=== PATIENT | male | born 1960 | race Caucasian/White ===

== ENCOUNTER 2024-06-21 08:03 | Emergency (ER) | payer BC, SELFPAY ==
[2024-06-21 08:10] VITALS: BP 125/89
[2024-06-21 08:14] VITALS: BMI 26.3
[2024-06-21] MEDS: TORADOL 15 MG IM (08:25)
--- NOTE | 2024-06-21 08:25 | ED.GENMED ---
History of Present Illness
General
Chief Complaint: Fall
Source: patient
Exam Limitations: none
Time Seen by Provider: 06/21/24 08:09
Nursing documentation reviewed up to this point in time: agreed with
History of Present Illness
History of Present Illness:
64-year-old male with past medical history of hypertension presenting the emergency department today with concerns of a trip and fall down 3 steps earlier this morning. Mainly landed on his left side his left thigh and left upper arm. Did not hit
his head did not lose consciousness not on blood thinners.
Past History
Past History
ED Past Medical History: Other (N/A)
ED Past Surgical History: Other (N/A)
Social History
Personal:
Living: with family
Review of Systems
Review of Systems
Allergies reviewed?: Yes
All Other Systems: ROS reviewed and negative except as documented in HPI and ROS
Phy Exam
Physical Exam
Physical Exam:
GENERAL: Alert , in no apparent distress
EYE: pupils equal and reactive
NECK: Supple, no significant adenopathy.
ENT: o/p clr, mmm.
CARDIAC: Regular rate and rhythm .
LUNGS: Clear breath sounds bilaterally, no acute respiratory distress, no wheezes/rales/rhonchi
ABDOMEN: Soft, without focal tenderness, no r/g, no cvat
NEUROLOGICAL: Alert and oriented, no focal neuro deficits
SKIN: Warm and dry, skin intact.
MUSCULOSKELETAL: Mild tenderness palpation to the mid left humerus as well as the missed mid left thigh region otherwise good range of motion no edema, well perfused.
PSYCH: Normal and appropriate interaction.
Course
Orders/Labs/Results
Orders:
Orders
06/21/24 08:18
Ketorolac [Toradol] 15 mg IM NOW STA
CR Femur - Left Min 2 Vw Urgent
Comment:
Reason For Exam: left femur pain after fall
CR Humerus - Left Min 2 Views* Urgent
Comment:
Reason For Exam: fall hit arm
06/21/24 09:14
Sling Left-Treatment ONCE
06/21/24 09:[address] Pelvis W/o Iv Contrast Urgent
Comment:
Reason For Exam: left hip pain normal femur film
06/21/24 11:35
Pt Eval And Treat Urgent
Treatment: left leg toe toch (acetabular fx), left ahumerus fx in sling
Activity Level: Ambulate
06/21/24 12:23
Case Management Consult ONCE
Case Management Consult: Discharge Planning
Comment: Needs WC, home PT
Oxycodone/Acetaminophen [Percocet 5/325] 1 tablet PO NOW STA
Vital Signs
Initial and Last Documented VS:
Initial Vital Signs
Temp Pulse Resp BP Pulse Ox
98.5 F 90 18 125/89 95
06/21/24 08:10 06/21/24 08:10 06/21/24 08:10 06/21/24 08:10 06/21/24 08:10
Last Documented Vital Signs
Temp Pulse Resp BP Pulse Ox
98.5 F 90 18 125/89 95
06/21/24 08:10 06/21/24 08:10 06/21/24 08:10 06/21/24 08:10 06/21/24 08:10
MDM/Problems Addressed
MDM/Problems Addressed:
64-year-old male presenting to the emergency department today after falling down 3 steps prior to arrival. Mainly landed on his left upper arm and left thigh. Did not hit his head remembers the entire event no loss of consciousness not on blood
thinners. No evidence of to the head or neck normal neurologic evaluation. Normal vital signs on arrival. X-ray showing proximal humerus fracture. Patient was placed in a sling and otherwise will follow-up with orthopedics. X-ray of the femur
without emergent findings. Patient unable to walk. Concerning the CT scan was performed. This does show an acetabular fracture. Case was discussed with Ortho recommending toe-touch weightbearing. Patient did additionally have a fracture to his
left humerus making using a walker impossible. He was seen by PT recommending wheelchair and stand and pivot. Patient claims that he believes that he be able to go home in this fashion with his . It was recommended that he follows up with
trauma Ortho Dr. Derek Miramontes at [facility]. He demonstrated understanding. Prior to leaving the patient had case management consulted to help facilitate getting a wheelchair and commode which was the recommendation from PT. The patient requires a
wheelchair due to fractures and ambulatory dysfunction. He requires a wheelchair in the home to complete his daily activities. Patient is unable to self propel and has a caregiver to propel that. Patient needs a commode due to confinement to 1
level at home and there is no toilets on the same level.
*Critical Care Note
Total Time (30-74mins, 75-104mins- exclusive of procedures): Not Applicable
ED Attending Note
-
Portions of this chart may have been created with voice recognition software.� Occasional wrong word or��sound alike� substitutions may have occurred due to the inherent limitations of voice recognition software.
Discharge Plan
Departure
Patient Disposition: Home (Routine Discharge)
Date of Disposition: 06/21/24
Time of Disposition: 14:57
Patient with high blood pressure during this ER visit?: No
Condition: Good
Covid-19: Not Applicable
Discharge Problem:
Acetabulum fracture, left, Closed fracture of neck of left humerus
Instructions: Hip fracture, Upper Arm Fracture ED
Prescriptions:
New
oxycodone-acetaminophen [Percocet] 5-325 mg tablet
1 tab PO Q8H PRN (Reason: Pain) Qty: 10 0RF
No Action
valacyclovir [Valtrex] 1,000 MG tablet
1,000 mg PO TID
acetaminophen-codeine 1 TABLET tablet
1 tab PO Q4 PRN (Reason: prn)
irbesartan 300 MG tablet
300 mg PO DAILY
hydrochlorothiazide 12.5 MG tablet
12.5 mg PO DAILY
desvenlafaxine succinate [Pristiq] 100 MG tablet extended release 24 hr
100 mg PO DAILY
Nexium
40 mg PO DAILY
Referrals:
Derek Stokes DO [Family Provider] -
Keny Montague MD [Active] - Follow up in 5-7 days
Activity Restrictions/Additional Instructions:
You came to the emergency department today for a fall. You are found to have a fracture of your proximal humerus of your left arm as well as of the acetabulum of your left hip. Please follow closely with orthopedics for further management. You
can toe-touch weight-bear with your left. Please follow-up with Ortho for further recommendations of your left arm. Please leave in a sling in the meantime. You can take the pain medication as needed 1 tab every 6 hours. Return for any
worsening, new or concerning symptoms.
For your hip fracture please follow-up with Dr. Derek Miramontes. Phone number is [phone]
Interventions
Interventions:
*Risk Screen - Suicide Last Done: 06/21/24 08:12
*General Assessment Last Done: 06/21/24 08:12
*Neglect/Abuse Screening Last Done: 06/21/24 08:12
ED-Musculoskeletal Assessment Last Done: 06/21/24 10:19
ED- Neurological Assessment Last Done: 06/21/24 10:19
ED-Skin Assessment Last Done: 06/21/24 10:19
Discharge Date and Time
Print Language: GREENLANDIC
[2024-06-21] MEDS: PERCOCET 5/325 1 TABLET PO (12:30)
--- NOTE | 2024-06-21 13:08 | CM ---
Met with patient and in the ED. Home Health services discussed; agencies identified; [facility] is preferred; referral sent
Patient discussed with [facility] liasion; patient is NWB on left side; Per PT patient demonstrated that he is able to stand, pivot and turn to/from a wheel chair
Needs a Wheelchair and Commode prior to discharge from the ED today
Plan: discharge to home with [facility], PT, OT
--- NOTE | 2024-06-21 14:07 | VNURNOTE ---
Chart reviewed. Home Health Liaison met with patient and spouse at bedside to discuss [facility] nurse/therapy, visits, schedule and homebound status. Patient is agreeable and understands that visits at home will be 2-3 x per week to assess and teach
medical management. Patient's son will be home with him tomorrow and spouse will be home with him over the weekend. Both are aware that [facility] will contact them for start of care in 1-2 days after discharge from . [facility] liaison spoke with Dane at
[email or web address] who confirmed they can deliver a w/c and commode to bedside today, within a few hours. Patient and spouse aware and agreeable. Faxed info and Rx to [email or web address] at [phone].
[facility] referral completed in [facility] Port.
== END 2024-06-21 16:18 | disposition home or self-care (01) ==
LOC: EMR 08:03
PROVIDERS: EMERGENCY PHYSICIAN Student in an Organized Health Care Education/Training Program; FAMILY PHYSICIAN Family Medicine
DX: S42.212A Unspecified displaced fracture of surgical neck of left humerus, initial encounter for closed fracture (principal); W10.9XXA Fall (on) (from) unspecified stairs and steps, initial encounter; I10 Essential (primary) hypertension
CPT/HCPCS: 99284; 72192; 73060; 73552

== ENCOUNTER → 2024-07-14 10:55 | Outpatient (REF) | payer BC, SELFPAY | LOC: RAD 10:55 | PROVIDERS: ATTENDING PHYSICIAN Physician Assistant; FAMILY PHYSICIAN Family Medicine | DX: S42.292A Other displaced fracture of upper end of left humerus, initial encounter for closed fracture (principal) | CPT/HCPCS: 73200 ==

== ENCOUNTER 2024-07-18 06:11 | Day surgery (SDC) | payer BC, SELFPAY ==
[2024-07-18] VITALS (8 sets, daily range): BP systolic 99–131; BP diastolic 73–93; BMI 24.4
[2024-07-18 13:45] LABS: Hemoglobin 13.6 g/dL (13.0-18.0)
[2024-07-18] MEDS: TYLENOL 1000 MG PO (13:51)
[2024-07-18] MEDS: CELEBREX 200 MG PO (13:51)
[2024-07-18] MEDS: NORMOSOL-R/PLASMALYTE-A 1000 IV (13:52)
[2024-07-18 14:05] LABS: Blood Urea Nitrogen 18 mg/dl (9-20); Estimated Creatinine Clearance 75 ml/min; Glucose 105 mg/dl (70-99)
== END 2024-07-18 19:15 | disposition home or self-care (01) ==
LOC: SDS 06:11
PROVIDERS: ATTENDING PHYSICIAN Orthopaedic Surgery Hand Surgery
DX: S42.202A Unspecified fracture of upper end of left humerus, initial encounter for closed fracture (principal); X58.XXXA Exposure to other specified factors, initial encounter
CPT/HCPCS: 23615; C1713; 73030; 76000; 82565; 82947; 84520; 85018; 93005